=== PATIENT | male | born 1985 | race Caucasian/White ===

== ENCOUNTER 2021-12-24 16:30 | Emergency (ER) | payer BC, SELFPAY ==
[2021-12-24 16:46] VITALS: BP 138/83; PULSE 78; RESP 16; TEMP 36.3; O2SAT 100
--- NOTE | 2021-12-24 17:34 | ED.WOUNDLAC ---
HPI - Wound/Laceration General Chief Complaint: Wound/Laceration Stated Complaint: Laceration on hand Time Seen by Provider: 12/24/21 16:50 Source: patient Mode of arrival: ambulatory Limitations: no limitations History of Present Illness HPI narrative: Mr. Marsh is a 36-year-old male patient presenting to the clinic today with a complaint of a laceration to the right palm near the finger. He reports he cut this approximately 1 to 2 hours ago on some ceramic glass. He reports he put his hand in the trash can and the broken ceramic glass cut his hand. His tetanus shot is up-to-date within the last 10 years Related Data Home Medications Medication Instructions Recorded Confirmed No Home Medications 12/24/21 12/24/21 Allergies Allergy/AdvReac Type Severity Reaction Status Date / Time No Known Allergies Allergy Verified 12/24/21 16:59 Review of Systems Review of Systems: Pertinent positives per HPI. Patient denies any fever, chills, rash, headache, visual changes, dizziness, cough, runny nose, sore throat, shortness of breath, chest pain, palpitations, nausea, vomiting, diarrhea, constipation, abdominal pain, or any urinary issues. PMFSH Comments At the time of my signature, I reviewed and agree with the nursing past medical, surgical, social, and family history. There is no relevant family history pertinent to the patient complaint. Exam Narrative: General: Well-developed, well nourished, in no apparent distress Head: Normocephalic, atraumatic. Cardio: Regular rate and rhythm, s1 and s2 normal, no murmur appreciated. Resp: Clear to auscultation bilaterally, no rhonchi, rales, wheezing or rubs. Integumentary: [place], warm, and dry, 1.5 cm vertical laceration to the right palm just below the second finger. Bleeding controlled Course Course Emergency Course: Portions of this record may have been created with voice recognition software. Level of Care: Express Care Visit Vital Signs Vital signs: Vital Signs Temperature 36.3 C L 12/24/21 16:46 Pulse Rate 78 12/24/21 16:46 Respiratory Rate 16 12/24/21 16:46 Blood Pressure 138/83 12/24/21 16:46 Pulse Oximetry 100 12/24/21 16:46 Temperature 36.3 C L 12/24/21 16:46 Pulse Rate 78 12/24/21 16:46 Respiratory Rate 16 12/24/21 16:46 Blood Pressure 138/83 12/24/21 16:46 Pulse Oximetry 100 12/24/21 16:46 Vital signs reviewed Procedures Laceration Laceration 1: Date: 12/24/21 Site: hand Side (If applicable): right Size (cm): 1.5 Description: linear Depth: simple, single layer Local Anesthetic: lidocaine 1% Amount of anesthesia used (mL): 2 Pre-repair: wound explored and irrigated ====== Skin Level ====== Skin layer closed with: nylon Size (cm): 4-0 Number of sutures: 4 Technique: simple, interrupted ====== Subcutaneous Layer ====== ====== Muscle Layer ====== ====== Tendon Layer ====== Dressing: Verbal consent obtained for laceration repair. Risk and benefits explained and patient voiced understanding. Area was cleansed with technic care and was prepped and draped using sterile technique. A 25-gauge needle was used to instill 2 mL of lidocaine without epi into the wound edges. Anesthesia was appropriate. A 4-0 suture on a p3 needle was used to place (4) interrupted sutures bringing the wound edges together- well approximated. Patient tolerated procedure well. Sterile dressing applied. MDM - Wound/Laceration MDM Narrative Medical decision making narrative: At the time of visit patient is resting comfortably on the exam stretcher. Has a 1.5 cm laceration to the palm of the right hand just below the index finger. No tendon involvement noted wound does gape open whenever he is flexing his finger. Risk and benefits discussed with patient regarding laceration repair and he agreed to this. Laceration repair performed and p
== END 2021-12-24 17:28 | disposition home or self-care (01) ==
PROVIDERS: Emergency Provider Nurse Practitioner Family
DX: S61.411A Laceration without foreign body of right hand, initial encounter (principal); W25.XXXA Contact with sharp glass, initial encounter
CPT/HCPCS: 12001; 99212; G0463